=== PATIENT | male | born 1960 | race Caucasian/White ===

== ENCOUNTER → 2020-10-08 | Outpatient (CLI) | payer BC, OTHER ==
[~2020-10-08] MED LIST: ELIQUIS 2.5 MG2.5 MG GT; GABAPENTIN400 MG PO; HYDROCHLOROTHIA25 MG PO; METHOCARBAMOL750 MG PO; MOTRIN IB200 MG PO; OXYCODON-ACETA1 EAC1 PO; TYLENOL 500 MG500 MG PO
[2020-10-08 08:50] LABS: HEMOGLOBIN 15.7 gm/dl (14.0-17.5); RED BLOOD COUNT 5.23 M/UL (4.20-5.50); WHITE BLOOD COUNT 5.4 K/UL (4.5-11.0)
[2020-10-08 09:13] LABS: BUN/CREATININE RATIO 26 (0-10)
== END ==
LOC: EDSTATUS 08:00 → OPSV2 08:00
PROVIDERS: Orthopaedic Surgery
DX: Z01.818 Encounter for other preprocedural examination (principal); M17.12 Unilateral primary osteoarthritis, left knee; I45.2 Bifascicular block; R94.31 Abnormal electrocardiogram [ECG] [EKG]
CPT/HCPCS: 36415; 80048; 81001; 85025; 87081; 93005

== ENCOUNTER → 2020-10-15 | Outpatient (CLI) | payer BC, OTHER | LOC: ECHO 09:23 → HEART 192 10-16 08:30 → ECHO 10-16 08:30 | DX: R94.31 Abnormal electrocardiogram [ECG] [EKG] (principal); I77.819 Aortic ectasia, unspecified site; R93.1 Abnormal findings on diagnostic imaging of heart and coronary circulation | CPT/HCPCS: ECHO; 93306 ==

== ENCOUNTER → 2020-10-26 | Outpatient (CLI) | payer BC, OTHER ==
[2020-10-26 10:36] LABS: BUN/CREATININE RATIO 22 (0-10)
== END ==
LOC: LAB 09:54
PROVIDERS: Orthopaedic Surgery
DX: Z01.812 Encounter for preprocedural laboratory examination (principal); M17.12 Unilateral primary osteoarthritis, left knee
CPT/HCPCS: 36415; 80048; 86850; 86900; 86901

== ENCOUNTER 2020-10-27 07:34 | Day surgery (SDC) | payer BC, OTHER ==
[~2020-10-27] VITALS: Ht 175.3 cm; Wt 85.7 kg
[2020-10-27] MEDS ORDERED: GABAPENTIN400 MG PO (08:39)
[2020-10-27] MEDS ORDERED: HYDROCHLOROTHIA25 MG PO (08:40)
[2020-10-27] MEDS ORDERED: METHOCARBAMOL750 MG PO (08:40)
[2020-10-27] MEDS ORDERED: MOTRIN IB200 MG PO (08:40)
[2020-10-27] MEDS ORDERED: TYLENOL 500 MG500 MG PO (08:41)
[2020-10-27] MEDS ORDERED: ELIQUIS 2.5 MG2.5 MG GT (10:11)
[2020-10-27] MEDS ORDERED: OXYCODON-ACETA1 EAC1 PO (10:11)
[2020-10-28 06:41] LABS: HEMOGLOBIN 13.4 gm/dl (14.0-17.5); RED BLOOD COUNT 4.41 M/UL (4.20-5.50); WHITE BLOOD COUNT 10.4 K/UL (4.5-11.0)
[2020-10-28 07:06] LABS: BUN/CREATININE RATIO 30 (0-10)
== END 2020-10-28 15:23 | disposition home or self-care (01) ==
LOC: OR 07:34 → MED SURG 4 19:45 → OR 10-28 15:23
PROVIDERS: Orthopaedic Surgery
DX: M17.12 Unilateral primary osteoarthritis, left knee (principal); I10 Essential (primary) hypertension; Z79.899 Other long term (current) drug therapy
CPT/HCPCS: 36415; 73560; 80048; 85027; 97110-GP-CQ; 97116-GP-CQ; 97161; 97166; 97535; C1713; C1776; J0592; J0690; J1100; J1885; J2001; J2250; J2405; J2704; J2795; J3010; J3370; J7120